=== PATIENT | female | born 1990 | race African-American/Black ===

== ENCOUNTER 2019-03-24 09:39 | Emergency (ER) | payer SELFPAY ==
[~2019-03-24] VITALS: Ht 172.7 cm; Wt 96.0 kg
[2019-03-24] MEDS ORDERED: ONDANSETRON HCL 4MG/2ML INJ IV ONE (10:15)
[2019-03-24] MEDS ORDERED: SODIUM CHLORIDE 0.9% 1,000 ML IV ONE (10:15)
[2019-03-24 10:35] LABS: HEMATOCRIT. 39.3 % (36.0-48.0); MEAN CORPUSCULAR HEMOGLOBIN 28.1 pg (28.0-32.0); MEAN CORPUSCULAR VOLUME 85.1 fL (81.0-99.0); MEAN PLATELET VOLUME 8.7 fl (7.4-10.4); PLATELET 176 x1000/uL (130-400); RED BLOOD CELL COUNT 4.62 mill/uL (4.2-5.4); RED CELL DISTRIBUTION WIDTH 13.4 % (11.6-14.6)
[2019-03-24 10:42] LABS: PROTHROMBIN TIME 10.1 sec (9.6-11.0)
[2019-03-24 10:45] LABS: CHLORIDE 107 mEq/L (98-107)
[2019-03-24 10:54] LABS: PLATELET ESTIMATE NORMAL
[2019-03-24] MEDS ORDERED: AZITHROMYCIN 500 MG TABLET PO ONE (12:15)
[2019-03-24] MEDS ORDERED: CEFTRIAXONE SODIUM 250 MG/VIAL IM ONE (12:15)
[2019-03-24 12:30] LABS: CLARITY URINE CLEAR (CLEAR); COLOR URINE YELLOW (YELLOW); KETONES URINE NEGATIVE (NEGATIVE); LEUKOCYTE ESTERASE URINE NEGATIVE (NEGATIVE); NITRITE URINE NEGATIVE (NEGATIVE); OCCULT BLOOD URINE NEGATIVE (NEGATIVE); PROTEIN URINE NEGATIVE (NEGATIVE); SPECIFIC GRAVITY URINE 1.017 (1.005-1.030)
[2019-03-24 13:18] VITALS: BP 124/69
== END 2019-03-24 13:22 | disposition home or self-care (01) ==
LOC: ER 09:39
DX: R55 Syncope and collapse (principal); R10.9 Unspecified abdominal pain; N89.8 Other specified noninflammatory disorders of vagina; D72.825 Bandemia
CPT/HCPCS: 36415; 80053; 81003; 81025; 83690; 85025; 85610; 87491; 87591; 96361; 96372; 96374; 99283; J0696; J2405; J7030